=== PATIENT | male | born 1955 | race Caucasian/White ===

== ENCOUNTER 2021-03-22 10:53 | Inpatient (IN) ==
[2021-03-22] MEDS ORDERED: ASPIRIN 325 MG TABLET PO STA (12:43)
[2021-03-22 12:49] LABS: Basophils # 0.1 10*3/uL (0.0-0.2); Basophils % 0.3 % (0.0-0.8); Eosinophils # 0.4 10*3/uL (0.0-0.87); Eosinophils % 2.4 % (0.00-10.9); Hematocrit 44.9 VOL% (42.0-52.0); Hemoglobin 14.4 GM/DL (14.0-18.0); Immature Granulocytes % 0.6 %; Lymphocytes # 2.8 10*3/uL (1.4-4.0); Lymphocytes % 18.1 % (21.2-54.2); Mean Corpuscular HGB Conc 32.1 GM/DL (32-36); Mean Corpuscular Volume 96.8 FL (87-102); Mean Platelet Volume 9.3 FL (9.6-12.0); Monocytes % 9.5 % (1.7-12.7); Neutrophils % 69.1 % (38.7-73.9); Platelet Count 346 T/CUMM (130-400); Red Blood Count 4.64 MC/CUMM (3.8-5.5); White Blood Count 15.7 T/CUMM (4-12)
[2021-03-22 12:57] LABS: INR 1.1; PT Patient Result 12.6 SECS (10.5-12.0)
[2021-03-22] MEDS ORDERED: ALBUTEROL 2.5 MG/3 ML NEB RESP TX PRN (14:57)
[2021-03-22] MEDS ORDERED: MORPHINE 2 MG/1 ML SYRINGE IV PRN (14:57)
[2021-03-22] MEDS ORDERED: GLUCAGON 1 MG VIAL IM PRN (14:57)
[2021-03-22] MEDS ORDERED: ACETAMINOPHEN 325 MG TABLET PO PRN ×2 (14:57)
[2021-03-22] MEDS ORDERED: hydrALAZINE 20 MG/1 ML VIAL IV PRN (14:57)
[2021-03-22] MEDS ORDERED: ONDANSETRON 4 MG/2 ML VIAL IV PRN (14:57)
[2021-03-22] MEDS ORDERED: DEXTROSE 10% 250 ML BAG IV PRN (15:07)
[2021-03-22 15:46] LABS: Risk Ratio 2.75; Thyroid Stimulating Hormone 2.26 uIU/ml (0.358-3.74); VLDL Cholesterol 20.6 MG/DL
[2021-03-22 16:32] LABS: Albumin 2.8 G/DL (3.4-5.0); Calcium 8.5 MG/DL (8.5-10.1); Osmolality,Calculated 275.7 MOS/KG (273-304); Potassium 3.8 MMOL/L (3.5-5.1); Total Protein 7.2 G/DL (6.4-8.2)
[2021-03-22 17:05] LABS: Bacteria,Urine Many /HPF (Few); Bilirubin,Urine Negative (Negative); Blood, Urine Moderate mg/dL (Negative); Glucose,Urine (UA) Negative (Negative); Ketones,Urine Negative (Negative); Mucus,Urine Many /LPF (Occasional); Nitrite,Urine Positive (Negative); Protein,Urine 30 MG/DL; RBC,Urine 3 /HPF (0-4); Urine Appearance CLOUDY (Clear); Urine Color Amber (Yellow); Urine Specific Gravity 1.021 (1.001-1.035); Urine Urobilinogen < 2.0 EU/DL (<2.0)
[2021-03-22] MEDS: APIXABAN 5 MG TABLET PO SCH (21:49)
[2021-03-22] MEDS: OMEGA 3 ACID ETHYL ESTERS 1 GM CAPSULE PO SCH (21:49)
[2021-03-22] MEDS: FINASTERIDE 5 MG TABLET PO SCH (21:49)
[2021-03-22] MEDS: CHOLECALCIFEROL 1,000 UNIT TABLET PO SCH (21:49)
[2021-03-23 04:16] LABS: Basophils # 0.1 10*3/uL (0.0-0.2); Basophils % 0.3 % (0.0-0.8); Eosinophils # 0.4 10*3/uL (0.0-0.87); Eosinophils % 2.6 % (0.00-10.9); Hematocrit 42.2 VOL% (42.0-52.0); Hemoglobin 13.9 GM/DL (14.0-18.0); Immature Granulocytes % 0.6 %; Immature Granulocytes Absolute 0.09 #; Lymphocytes # 2.4 10*3/uL (1.4-4.0); Lymphocytes % 15.7 % (21.2-54.2); Mean Corpuscular HGB Conc 32.9 GM/DL (32-36); Mean Corpuscular Volume 94.2 FL (87-102); Mean Platelet Volume 10.4 FL (9.6-12.0); Monocytes % 9.3 % (1.7-12.7); Neutrophils % 71.5 % (38.7-73.9); Platelet Count 291 T/CUMM (130-400); Red Blood Count 4.48 MC/CUMM (3.8-5.5); White Blood Count 15.3 T/CUMM (4-12)
[2021-03-23 04:38] LABS: Calcium 8.5 MG/DL (8.5-10.1); Potassium 5.8 MMOL/L (3.5-5.1)
[2021-03-23] MEDS ORDERED: METOPROLOL TARTRATE 5 MG/5 ML VIAL IV ONE (09:05)
[2021-03-23] MEDS: APIXABAN 5 MG TABLET PO SCH ×2 (09:52→21:11)
[2021-03-23] MEDS: OMEGA 3 ACID ETHYL ESTERS 1 GM CAPSULE PO SCH ×2 (09:52→21:11)
[2021-03-23] MEDS: PANTOPRAZOLE 40 MG TABLET PO SCH (09:52)
[2021-03-23] MEDS ORDERED: METOPROLOL TARTRATE 25 MG TABLET PO SCH (10:00)
[2021-03-23] MEDS: cefTRIAXone 1,000 MG in SODIUM CHLORIDE 0.9% 100 ML IV SCH (10:06)
[2021-03-23] MEDS: PHENAZOPYRIDINE 95 MG TABLET PO SCH ×3 (12:08→21:11)
[2021-03-23] MEDS: FINASTERIDE 5 MG TABLET PO SCH (21:11)
[2021-03-23] MEDS: CHOLECALCIFEROL 1,000 UNIT TABLET PO SCH (21:11)
[2021-03-23] MEDS: SOTALOL 80 MG TABLET PO SCH (21:12)
[2021-03-24 05:24] LABS: Basophils # 0.1 10*3/uL (0.0-0.2); Basophils % 0.3 % (0.0-0.8); Eosinophils # 0.4 10*3/uL (0.0-0.87); Eosinophils % 1.5 % (0.00-10.9); Hemoglobin 13.3 GM/DL (14.0-18.0); Immature Granulocytes % 0.6 %; Immature Granulocytes Absolute 0.14 #; Lymphocytes # 3.3 10*3/uL (1.4-4.0); Mean Corpuscular HGB Conc 31.7 GM/DL (32-36); Mean Corpuscular Volume 96.6 FL (87-102); Monocytes % 9.6 % (1.7-12.7); Platelet Count 335 T/CUMM (130-400); Red Blood Count 4.35 MC/CUMM (3.8-5.5); White Blood Count 23.3 T/CUMM (4-12)
[2021-03-24 05:36] LABS: Osmolality,Calculated 272.1 MOS/KG (273-304); Potassium 4.2 MMOL/L (3.5-5.1)
[2021-03-24 05:46] LABS: Lymphocytes 13 % (20-55); Platelet Estimate Adequate; Segmented Neutrophils 78 % (50-85); Total Cells Counted 100
[2021-03-24] MEDS: cefTRIAXone 1,000 MG in SODIUM CHLORIDE 0.9% 100 ML IV SCH (11:10)
[2021-03-24] MEDS: APIXABAN 5 MG TABLET PO SCH ×2 (11:11→21:22)
[2021-03-24] MEDS: DOCUSATE SODIUM 100 MG CAPSULE PO PRN (11:11)
[2021-03-24] MEDS: SOTALOL 80 MG TABLET PO SCH ×2 (11:11→21:21)
[2021-03-24] MEDS: OMEGA 3 ACID ETHYL ESTERS 1 GM CAPSULE PO SCH ×2 (11:11→21:21)
[2021-03-24] MEDS: PANTOPRAZOLE 40 MG TABLET PO SCH (11:20)
[2021-03-24] MEDS: PHENAZOPYRIDINE 95 MG TABLET PO SCH ×3 (11:20→21:21)
[2021-03-24] MEDS: CHOLECALCIFEROL 1,000 UNIT TABLET PO SCH (21:21)
[2021-03-24] MEDS: FINASTERIDE 5 MG TABLET PO SCH (21:22)
[2021-03-25 06:32] LABS: Basophils % 0.3 % (0.0-0.8); Eosinophils # 0.5 10*3/uL (0.0-0.87); Eosinophils % 3.6 % (0.00-10.9); Hematocrit 41.4 VOL% (42.0-52.0); Hemoglobin 13.2 GM/DL (14.0-18.0); Immature Granulocytes % 0.7 %; Immature Granulocytes Absolute 0.11 #; Lymphocytes # 2.7 10*3/uL (1.4-4.0); Lymphocytes % 18.7 % (21.2-54.2); Mean Corpuscular HGB Conc 31.9 GM/DL (32-36); Mean Platelet Volume 9.6 FL (9.6-12.0); Monocytes % 9.7 % (1.7-12.7); Platelet Count 310 T/CUMM (130-400); Red Blood Count 4.27 MC/CUMM (3.8-5.5); Red Cell Distribution Width 12.9 % (9.3-17.3); White Blood Count 14.7 T/CUMM (4-12)
[2021-03-25 06:40] LABS: Calcium 9.3 MG/DL (8.5-10.1); Osmolality,Calculated 273.1 MOS/KG (273-304)
[2021-03-25] MEDS: PHENAZOPYRIDINE 95 MG TABLET PO SCH ×3 (09:21→21:14)
[2021-03-25] MEDS: PANTOPRAZOLE 40 MG TABLET PO SCH (09:22)
[2021-03-25] MEDS: OMEGA 3 ACID ETHYL ESTERS 1 GM CAPSULE PO SCH ×2 (09:22→21:15)
[2021-03-25] MEDS: APIXABAN 5 MG TABLET PO SCH ×2 (09:22→21:15)
[2021-03-25] MEDS: SOTALOL 80 MG TABLET PO SCH ×2 (09:22→21:15)
[2021-03-25] MEDS: cefTRIAXone 1,000 MG in SODIUM CHLORIDE 0.9% 100 ML IV SCH (09:23)
[2021-03-25] MEDS: CHOLECALCIFEROL 1,000 UNIT TABLET PO SCH (21:15)
[2021-03-25] MEDS: FINASTERIDE 5 MG TABLET PO SCH (21:21)
[2021-03-26 08:13] LABS: Basophils % 0.4 % (0.0-0.8); Eosinophils # 0.5 10*3/uL (0.0-0.87); Hematocrit 42.7 VOL% (42.0-52.0); Hemoglobin 13.9 GM/DL (14.0-18.0); Immature Granulocytes % 0.7 %; Immature Granulocytes Absolute 0.07 #; Lymphocytes # 2.1 10*3/uL (1.4-4.0); Mean Corpuscular HGB Conc 32.6 GM/DL (32-36); Mean Corpuscular Volume 94.9 FL (87-102); Mean Platelet Volume 8.5 FL (9.6-12.0); Monocytes % 10.8 % (1.7-12.7); Neutrophils % 61.1 % (38.7-73.9); Platelet Count 404 T/CUMM (130-400); Red Cell Distribution Width 12.7 % (9.3-17.3); White Blood Count 9.6 T/CUMM (4-12)
[2021-03-26 08:36] LABS: Calcium 8.8 MG/DL (8.5-10.1); Potassium 4.2 MMOL/L (3.5-5.1)
[2021-03-26] MEDS: PANTOPRAZOLE 40 MG TABLET PO SCH (08:51)
[2021-03-26] MEDS: SOTALOL 80 MG TABLET PO SCH ×2 (08:51→20:51)
[2021-03-26] MEDS: PHENAZOPYRIDINE 95 MG TABLET PO SCH ×3 (08:51→20:51)
[2021-03-26] MEDS: OMEGA 3 ACID ETHYL ESTERS 1 GM CAPSULE PO SCH ×2 (08:51→20:51)
[2021-03-26] MEDS: APIXABAN 5 MG TABLET PO SCH ×2 (08:51→20:51)
[2021-03-26] MEDS: cefTRIAXone 1,000 MG in SODIUM CHLORIDE 0.9% 100 ML IV SCH (08:52)
[2021-03-26] MEDS: FINASTERIDE 5 MG TABLET PO SCH (20:50)
[2021-03-26] MEDS: CHOLECALCIFEROL 1,000 UNIT TABLET PO SCH (20:51)
[2021-03-27 05:59] LABS: Basophils # 0.1 10*3/uL (0.0-0.2); Basophils % 0.8 % (0.0-0.8); Eosinophils # 0.4 10*3/uL (0.0-0.87); Eosinophils % 4.8 % (0.00-10.9); Hematocrit 42.4 VOL% (42.0-52.0); Hemoglobin 13.1 GM/DL (14.0-18.0); Immature Granulocytes % 1.4 %; Immature Granulocytes Absolute 0.12 #; Lymphocytes # 2.3 10*3/uL (1.4-4.0); Lymphocytes % 26.5 % (21.2-54.2); Mean Corpuscular HGB Conc 30.9 GM/DL (32-36); Mean Corpuscular Volume 99.3 FL (87-102); Mean Platelet Volume 10.8 FL (9.6-12.0); Monocytes % 13.4 % (1.7-12.7); Neutrophils % 53.1 % (38.7-73.9); Platelet Count 306 T/CUMM (130-400); Red Blood Count 4.27 MC/CUMM (3.8-5.5); Red Cell Distribution Width 12.7 % (9.3-17.3); White Blood Count 8.8 T/CUMM (4-12)
[2021-03-27 06:36] LABS: Osmolality,Calculated 269.1 MOS/KG (273-304); Potassium 4.3 MMOL/L (3.5-5.1)
[2021-03-27] MEDS: OMEGA 3 ACID ETHYL ESTERS 1 GM CAPSULE PO SCH ×2 (09:04→21:59)
[2021-03-27] MEDS: APIXABAN 5 MG TABLET PO SCH ×2 (09:04→22:01)
[2021-03-27] MEDS: PANTOPRAZOLE 40 MG TABLET PO SCH (09:04)
[2021-03-27] MEDS: PHENAZOPYRIDINE 95 MG TABLET PO SCH ×3 (09:04→21:59)
[2021-03-27] MEDS: SOTALOL 80 MG TABLET PO SCH ×2 (09:04→21:59)
[2021-03-27] MEDS: cefTRIAXone 1,000 MG in SODIUM CHLORIDE 0.9% 100 ML IV SCH (09:05)
[2021-03-27] MEDS: FINASTERIDE 5 MG TABLET PO SCH (21:59)
[2021-03-27] MEDS: CHOLECALCIFEROL 1,000 UNIT TABLET PO SCH (21:59)
[2021-03-28] MEDS ORDERED: SODIUM CHLORIDE 0.9% 500 ML IV SCH (06:00)
[2021-03-28 06:29] LABS: Basophils # 0.1 10*3/uL (0.0-0.2); Basophils % 0.9 % (0.0-0.8); Eosinophils # 0.4 10*3/uL (0.0-0.87); Eosinophils % 5.1 % (0.00-10.9); Hematocrit 42.5 VOL% (42.0-52.0); Hemoglobin 13.5 GM/DL (14.0-18.0); Immature Granulocytes % 0.7 %; Immature Granulocytes Absolute 0.06 #; Lymphocytes # 2.4 10*3/uL (1.4-4.0); Lymphocytes % 28.2 % (21.2-54.2); Mean Corpuscular HGB Conc 31.8 GM/DL (32-36); Mean Corpuscular Volume 95.1 FL (87-102); Mean Platelet Volume 8.8 FL (9.6-12.0); Monocytes % 14.1 % (1.7-12.7); Platelet Count 448 T/CUMM (130-400); Red Blood Count 4.47 MC/CUMM (3.8-5.5); Red Cell Distribution Width 12.8 % (9.3-17.3); White Blood Count 8.6 T/CUMM (4-12)
[2021-03-28] MEDS ORDERED: MIDAZOLAM 10 MG/2 ML VIAL ONE (06:43)
[2021-03-28] MEDS ORDERED: MEPERIDINE 25 MG/1 ML VIAL ONE (06:44)
[2021-03-28 06:45] LABS: Calcium 9.4 MG/DL (8.5-10.1); Osmolality,Calculated 276.7 MOS/KG (273-304); Potassium 4.3 MMOL/L (3.5-5.1)
[2021-03-28] MEDS ORDERED: SODIUM CHLORIDE 0.9% 1,000 ML IV SCH (06:45)
[2021-03-28] MEDS ORDERED: MIDAZOLAM 2 MG/2 ML VIAL IV ONE (07:40)
[2021-03-28] MEDS: PHENAZOPYRIDINE 95 MG TABLET PO SCH (09:02)
[2021-03-28] MEDS: OMEGA 3 ACID ETHYL ESTERS 1 GM CAPSULE PO SCH (09:03)
[2021-03-28] MEDS: PANTOPRAZOLE 40 MG TABLET PO SCH (09:03)
[2021-03-28] MEDS: APIXABAN 5 MG TABLET PO SCH (09:03)
[2021-03-28] MEDS: DOCUSATE SODIUM 100 MG CAPSULE PO PRN (09:04)
[2021-03-28] MEDS: cefTRIAXone 1,000 MG in SODIUM CHLORIDE 0.9% 100 ML IV SCH (09:07)
[2021-03-28] MEDS: SOTALOL 80 MG TABLET PO SCH (09:07)
[2021-03-28 12:32] VITALS: BP 92/59
== END 2021-03-28 12:31 | disposition home or self-care (01) | DRG 309 ==
LOC: N.ED 10:53 → N.EDINP 10:53 → SUATTDRO 14:57 → N.TELES 03-23 06:27 → SUATTDRO 03-23 10:07
PROVIDERS: ADMIT Internal Medicine; ATTEND Emergency Medicine

== ENCOUNTER 2021-12-14 11:51 | Inpatient (IN) ==
[2021-12-14 12:56] LABS: Bilirubin,Urine Moderate mg/dL (Negative); Blood, Urine Large mg/dL (Negative); Glucose,Urine (UA) Negative (Negative); Ketones,Urine Trace mg/dL (Negative); Nitrite,Urine Positive (Negative); Protein,Urine >=300 mg/dL (Negative); Urine Appearance Cloudy (Clear); Urine Color Red (Yellow); Urine Specific Gravity >= 1.030 (1.001-1.035); Urine pH 5.5 (4.5-8.0)
[2021-12-14 13:00] LABS: Hyaline Casts,Urine 254 /LPF (0-3); Mucus,Urine Many /LPF (Occasional); RBC,Urine 3360 /HPF (0-4)
[2021-12-14] MEDS ORDERED: SODIUM CHLORIDE 0.9% 1,000 ML IV STA ×2 (13:25→17:22)
[2021-12-14 14:03] LABS: Basophils # 0.1 10*3/uL (0.0-0.2); Basophils % 0.4 % (0.0-0.8); Eosinophils # 0.1 10*3/uL (0.0-0.87); Eosinophils % 0.9 % (0.00-10.9); Hematocrit 44.4 VOL% (42.0-52.0); Hemoglobin 14.6 GM/DL (14.0-18.0); Immature Granulocytes % 0.5 %; Immature Granulocytes Absolute 0.07 #; Lymphocytes % 12.8 % (21.2-54.2); Mean Corpuscular HGB Conc 32.9 GM/DL (32-36); Mean Corpuscular Volume 95.5 FL (87-102); Mean Platelet Volume 9.1 FL (9.6-12.0); Monocytes # 1.9 10*3/uL (0.11-0.8); Monocytes % 12.8 % (1.7-12.7); Neutrophils % 72.6 % (38.7-73.9); Platelet Count 302 T/CUMM (130-400); Red Blood Count 4.65 MC/CUMM (3.8-5.5); Red Cell Distribution Width 13.1 % (9.3-17.3); White Blood Count 15.2 T/CUMM (4-12)
[2021-12-14 14:20] LABS: Albumin 3.7 G/DL (3.4-5.0); Bilirubin,Total 0.6 MG/DL (0.20-1.00); Calcium 10.3 MG/DL (8.5-10.1); Osmolality,Calculated 278.2 MOS/KG (273-304); Potassium 4.5 MMOL/L (3.5-5.1); Total Protein 8.1 G/DL (6.4-8.2)
[2021-12-14] MEDS ORDERED: ONDANSETRON 4 MG/2 ML VIAL IV PRN (14:46)
[2021-12-14] MEDS ORDERED: MORPHINE 2 MG/1 ML SYRINGE IV PRN (14:46)
[2021-12-14] MEDS ORDERED: SODIUM CHLORIDE 0.9% 1,000 ML IV SCH (15:00)
[2021-12-14 17:40] LABS: CKMB % 9.56 %
[2021-12-14] MEDS: ASCORBIC ACID 500 MG TABLET PO SCH (17:40)
[2021-12-14] MEDS: cefTRIAXone 1,000 MG in SODIUM CHLORIDE 0.9% 100 ML IV SCH (18:15)
[2021-12-14] MEDS ORDERED: ALUM/MAG/SIMETH/LIDO VISC 1:1 30 ML BOTTLE PO ONE (19:44)
[2021-12-14] MEDS: FENOFIBRATE 145 MG TABLET PO SCH (20:02)
[2021-12-14] MEDS: CHOLECALCIFEROL 1,000 UNIT TABLET PO SCH (20:02)
[2021-12-14] MEDS: FINASTERIDE 5 MG TABLET PO SCH (20:53)
[2021-12-14] MEDS: OMEGA 3 ACID ETHYL ESTERS 1 GM CAPSULE PO SCH (20:53)
[2021-12-14] MEDS: AMIODARONE 200 MG TABLET PO SCH (20:53)
[2021-12-14] MEDS ORDERED: APIXABAN 5 MG TABLET PO SCH (21:00)
[2021-12-14] MEDS: SODIUM CHLORIDE 0.9% 1,000 ML IV SCH (21:42)
[2021-12-15] MEDS: ASCORBIC ACID 500 MG TABLET PO SCH ×2 (03:04→17:35)
[2021-12-15 06:01] LABS: Basophils # 0.1 10*3/uL (0.0-0.2); Basophils % 0.4 % (0.0-0.8); Eosinophils # 0.4 10*3/uL (0.0-0.87); Eosinophils % 2.9 % (0.00-10.9); Hematocrit 35.7 VOL% (42.0-52.0); Hemoglobin 11.9 GM/DL (14.0-18.0); Immature Granulocytes % 0.4 %; Immature Granulocytes Absolute 0.06 #; Lymphocytes # 2.3 10*3/uL (1.4-4.0); Lymphocytes % 16.6 % (21.2-54.2); Mean Corpuscular HGB Conc 33.3 GM/DL (32-36); Mean Corpuscular Volume 96.5 FL (87-102); Mean Platelet Volume 9.3 FL (9.6-12.0); Monocytes # 1.5 10*3/uL (0.11-0.8); Monocytes % 11.3 % (1.7-12.7); Neutrophils % 68.4 % (38.7-73.9); Platelet Count 300 T/CUMM (130-400); Red Cell Distribution Width 13.2 % (9.3-17.3); White Blood Count 13.7 T/CUMM (4-12)
[2021-12-15 06:32] LABS: Albumin 2.8 G/DL (3.4-5.0); Bilirubin,Total 0.7 MG/DL (0.20-1.00); Calcium 9.5 MG/DL (8.5-10.1); Osmolality,Calculated 277.1 MOS/KG (273-304); Potassium 4.7 MMOL/L (3.5-5.1); Risk Ratio 3.06; Thyroid Stimulating Hormone 0.749 uIU/ml (0.358-3.74); Total Protein 6.7 G/DL (6.4-8.2); VLDL Cholesterol 13.4 MG/DL
[2021-12-15 07:26] LABS: CKMB % 6.16 %
[2021-12-15 07:31] LABS: High Sensitive Troponin I* 12059.8 ng/L (0-78)
[2021-12-15] MEDS: SODIUM CHLORIDE 0.9% 1,000 ML IV SCH ×2 (07:57→20:05)
[2021-12-15] MEDS: AMIODARONE 200 MG TABLET PO SCH ×2 (08:20→20:46)
[2021-12-15] MEDS: OMEGA 3 ACID ETHYL ESTERS 1 GM CAPSULE PO SCH ×2 (08:20→20:45)
[2021-12-15] MEDS ORDERED: FLUCONAZOLE 100 MG TABLET PO ONE (13:29)
[2021-12-15] MEDS: cefTRIAXone 1,000 MG in SODIUM CHLORIDE 0.9% 100 ML IV SCH (17:34)
[2021-12-15] MEDS: CHOLECALCIFEROL 1,000 UNIT TABLET PO SCH (18:36)
[2021-12-15] MEDS: FENOFIBRATE 145 MG TABLET PO SCH (18:36)
[2021-12-15] MEDS: FINASTERIDE 5 MG TABLET PO SCH (20:46)
[2021-12-16] MEDS: ASCORBIC ACID 500 MG TABLET PO SCH ×3 (03:08→15:49)
[2021-12-16] MEDS: SODIUM CHLORIDE 0.9% 1,000 ML IV SCH ×2 (04:49→14:10)
[2021-12-16 05:44] LABS: Basophils % 0.3 % (0.0-0.8); Eosinophils # 0.8 10*3/uL (0.0-0.87); Eosinophils % 6.5 % (0.00-10.9); Hematocrit 35.5 VOL% (42.0-52.0); Hemoglobin 11.6 GM/DL (14.0-18.0); Immature Granulocytes % 0.7 %; Immature Granulocytes Absolute 0.08 #; Lymphocytes # 2.4 10*3/uL (1.4-4.0); Lymphocytes % 19.7 % (21.2-54.2); Mean Corpuscular HGB Conc 32.7 GM/DL (32-36); Mean Platelet Volume 9.2 FL (9.6-12.0); Monocytes # 1.1 10*3/uL (0.11-0.8); Monocytes % 8.8 % (1.7-12.7); Platelet Count 326 T/CUMM (130-400); Red Blood Count 3.66 MC/CUMM (3.8-5.5); Red Cell Distribution Width 13.3 % (9.3-17.3); White Blood Count 12.1 T/CUMM (4-12)
[2021-12-16 06:06] LABS: Albumin 2.6 G/DL (3.4-5.0); Bilirubin,Total 0.5 MG/DL (0.20-1.00); Calcium 9.2 MG/DL (8.5-10.1); Osmolality,Calculated 274.2 MOS/KG (273-304); Potassium 4.3 MMOL/L (3.5-5.1); Total Protein 6.8 G/DL (6.4-8.2)
[2021-12-16 06:44] LABS: Hepatitis B Core IgM Quant 0.19 Index; Hepatitis B Surface Ag Quant < 0.10 Index; Hepatitis B Surface Ag Result Non-Reactive (NonReactive); Hepatitis C Virus Ab Quant 0.06 Index; Hepatitis C Virus Ab Result Non-Reactive (NonReactive)
[2021-12-16] MEDS: PANTOPRAZOLE 40 MG TABLET PO SCH (08:31)
[2021-12-16] MEDS: OMEGA 3 ACID ETHYL ESTERS 1 GM CAPSULE PO SCH ×2 (08:31→23:27)
[2021-12-16] MEDS: AMIODARONE 200 MG TABLET PO SCH ×2 (08:31→23:26)
[2021-12-16] MEDS: MEROPENEM 500 MG in SODIUM CHLORIDE 0.9% 100 ML IV SCH ×3 (09:22→23:27)
[2021-12-16] MEDS ORDERED: ENOXAPARIN 100 MG/ML SYRINGE SUBCUT SCH (11:30)
[2021-12-16] MEDS: ASPIRIN EC 81 MG TABLET PO SCH (11:37)
[2021-12-16] MEDS: FENOFIBRATE 145 MG TABLET PO SCH (18:47)
[2021-12-16] MEDS: CHOLECALCIFEROL 1,000 UNIT TABLET PO SCH (18:47)
[2021-12-16] MEDS: FINASTERIDE 5 MG TABLET PO SCH (23:28)
[2021-12-17] MEDS: SODIUM CHLORIDE 0.9% 1,000 ML IV SCH ×3 (00:15→20:52)
[2021-12-17] MEDS: MEROPENEM 500 MG in SODIUM CHLORIDE 0.9% 100 ML IV SCH (03:58)
[2021-12-17 05:35] LABS: Basophils # 0.1 10*3/uL (0.0-0.2); Basophils % 0.6 % (0.0-0.8); Eosinophils # 0.9 10*3/uL (0.0-0.87); Eosinophils % 7.9 % (0.00-10.9); Hematocrit 34.6 VOL% (42.0-52.0); Hemoglobin 11.1 GM/DL (14.0-18.0); Immature Granulocytes % 0.8 %; Immature Granulocytes Absolute 0.09 #; Lymphocytes # 2.4 10*3/uL (1.4-4.0); Mean Corpuscular HGB Conc 32.1 GM/DL (32-36); Mean Corpuscular Volume 97.2 FL (87-102); Mean Platelet Volume 9.3 FL (9.6-12.0); Monocytes # 0.9 10*3/uL (0.11-0.8); Monocytes % 8.6 % (1.7-12.7); Neutrophils % 60.1 % (38.7-73.9); Platelet Count 384 T/CUMM (130-400); Red Blood Count 3.56 MC/CUMM (3.8-5.5); Red Cell Distribution Width 13.4 % (9.3-17.3); White Blood Count 10.9 T/CUMM (4-12)
[2021-12-17 05:55] LABS: Calcium 8.5 MG/DL (8.5-10.1); Osmolality,Calculated 278.7 MOS/KG (273-304)
[2021-12-17] MEDS: AMIODARONE 200 MG TABLET PO SCH ×2 (09:10→20:52)
[2021-12-17] MEDS: ASPIRIN EC 81 MG TABLET PO SCH (09:10)
[2021-12-17] MEDS: OMEGA 3 ACID ETHYL ESTERS 1 GM CAPSULE PO SCH ×2 (09:10→20:52)
[2021-12-17] MEDS: PANTOPRAZOLE 40 MG TABLET PO SCH (09:10)
[2021-12-17] MEDS: ASCORBIC ACID 500 MG TABLET PO SCH (15:40)
[2021-12-17] MEDS: CHOLECALCIFEROL 1,000 UNIT TABLET PO SCH (18:05)
[2021-12-17] MEDS: FENOFIBRATE 145 MG TABLET PO SCH (18:05)
[2021-12-17] MEDS: FINASTERIDE 5 MG TABLET PO SCH (20:52)
[2021-12-18 05:09] LABS: Basophils # 0.1 10*3/uL (0.0-0.2); Basophils % 0.7 % (0.0-0.8); Eosinophils # 0.7 10*3/uL (0.0-0.87); Hematocrit 33.2 VOL% (42.0-52.0); Hemoglobin 10.8 GM/DL (14.0-18.0); Immature Granulocytes % 1.3 %; Immature Granulocytes Absolute 0.11 #; Lymphocytes # 2.1 10*3/uL (1.4-4.0); Lymphocytes % 24.1 % (21.2-54.2); Mean Corpuscular HGB Conc 32.5 GM/DL (32-36); Mean Corpuscular Volume 96.5 FL (87-102); Mean Platelet Volume 9.2 FL (9.6-12.0); Monocytes # 0.9 10*3/uL (0.11-0.8); Monocytes % 9.8 % (1.7-12.7); Neutrophils % 56.1 % (38.7-73.9); Platelet Count 442 T/CUMM (130-400); Red Blood Count 3.44 MC/CUMM (3.8-5.5); Red Cell Distribution Width 13.6 % (9.3-17.3); White Blood Count 8.8 T/CUMM (4-12)
[2021-12-18 05:34] LABS: Calcium 8.3 MG/DL (8.5-10.1); Potassium 3.8 MMOL/L (3.5-5.1)
[2021-12-18] MEDS: SODIUM CHLORIDE 0.9% 1,000 ML IV SCH ×2 (06:36→18:34)
[2021-12-18] MEDS: ASCORBIC ACID 500 MG TABLET PO SCH ×2 (09:42→20:25)
[2021-12-18] MEDS: ASPIRIN EC 81 MG TABLET PO SCH (09:42)
[2021-12-18] MEDS: AMIODARONE 200 MG TABLET PO SCH ×2 (09:42→20:25)
[2021-12-18] MEDS: PANTOPRAZOLE 40 MG TABLET PO SCH (09:43)
[2021-12-18] MEDS: OMEGA 3 ACID ETHYL ESTERS 1 GM CAPSULE PO SCH ×2 (09:43→20:25)
[2021-12-18] MEDS: ERYTHROMYCIN 0.5% OPHT OINT 3.5 GM TUBE RIGHT EYE SCH ×3 (14:15→20:25)
[2021-12-18] MEDS: PHENAZOPYRIDINE 95 MG TABLET PO SCH (17:23)
[2021-12-18] MEDS: FENOFIBRATE 145 MG TABLET PO SCH (18:34)
[2021-12-18] MEDS: CHOLECALCIFEROL 1,000 UNIT TABLET PO SCH (18:34)
[2021-12-18] MEDS: FINASTERIDE 5 MG TABLET PO SCH (20:25)
[2021-12-19] MEDS: SODIUM CHLORIDE 0.9% 1,000 ML IV SCH ×2 (02:30→16:50)
[2021-12-19 06:00] LABS: Basophils # 0.1 10*3/uL (0.0-0.2); Eosinophils # 0.6 10*3/uL (0.0-0.87); Eosinophils % 6.8 % (0.00-10.9); Hematocrit 35.4 VOL% (42.0-52.0); Hemoglobin 11.4 GM/DL (14.0-18.0); Immature Granulocytes % 2.4 %; Lymphocytes # 2.4 10*3/uL (1.4-4.0); Lymphocytes % 29.1 % (21.2-54.2); Mean Corpuscular HGB Conc 32.2 GM/DL (32-36); Mean Corpuscular Volume 98.1 FL (87-102); Monocytes # 0.8 10*3/uL (0.11-0.8); Monocytes % 9.5 % (1.7-12.7); Neutrophils % 51.2 % (38.7-73.9); Platelet Count 491 T/CUMM (130-400); Red Blood Count 3.61 MC/CUMM (3.8-5.5); Red Cell Distribution Width 13.6 % (9.3-17.3); White Blood Count 8.4 T/CUMM (4-12)
[2021-12-19 06:23] LABS: Potassium 4.2 MMOL/L (3.5-5.1)
[2021-12-19] MEDS: ASCORBIC ACID 500 MG TABLET PO SCH ×2 (08:59→21:04)
[2021-12-19] MEDS: PANTOPRAZOLE 40 MG TABLET PO SCH (08:59)
[2021-12-19] MEDS: ASPIRIN EC 81 MG TABLET PO SCH (08:59)
[2021-12-19] MEDS: PHENAZOPYRIDINE 95 MG TABLET PO SCH ×3 (08:59→16:22)
[2021-12-19] MEDS: OMEGA 3 ACID ETHYL ESTERS 1 GM CAPSULE PO SCH ×2 (09:00→21:04)
[2021-12-19] MEDS: AMIODARONE 200 MG TABLET PO SCH ×2 (09:00→21:04)
[2021-12-19] MEDS: ERYTHROMYCIN 0.5% OPHT OINT 3.5 GM TUBE RIGHT EYE SCH ×4 (10:48→21:05)
[2021-12-19] MEDS: FENOFIBRATE 145 MG TABLET PO SCH (21:04)
[2021-12-19] MEDS: CHOLECALCIFEROL 1,000 UNIT TABLET PO SCH (21:04)
[2021-12-19] MEDS: FINASTERIDE 5 MG TABLET PO SCH (21:05)
[2021-12-20] MEDS: SODIUM CHLORIDE 0.9% 1,000 ML IV SCH ×3 (01:42→17:42)
[2021-12-20] MEDS ORDERED: cefTRIAXone 1,000 MG in SODIUM CHLORIDE 0.9% 100 ML IV ONE (06:32)
[2021-12-20] MEDS: PHENAZOPYRIDINE 95 MG TABLET PO SCH ×2 (08:00→13:40)
[2021-12-20] MEDS: ERYTHROMYCIN 0.5% OPHT OINT 3.5 GM TUBE RIGHT EYE SCH ×4 (08:30→20:36)
[2021-12-20] MEDS ORDERED: fentaNYL 100 MCG/2 ML VIAL ONE (08:49)
[2021-12-20] MEDS ORDERED: LIDOCAINE 2% 5 ML VIAL ONE (08:49)
[2021-12-20] MEDS ORDERED: propofoL 200 MG/20 ML VIAL IV ONE (08:49)
[2021-12-20] MEDS ORDERED: MIDAZOLAM 2 MG/2 ML VIAL ONE (08:55)
[2021-12-20] MEDS ORDERED: ONDANSETRON 4 MG/2 ML VIAL ONE (08:56)
[2021-12-20] MEDS ORDERED: ePHEDrine 50 MG/ML VIAL ONE (09:35)
[2021-12-20] MEDS ORDERED: SEVOFLURANE 1 UNIT/15 MINUTE INH ONE (10:12)
[2021-12-20] MEDS ORDERED: PHENYLEPHRINE 1 MG/10 ML SYRINGE IV ONE (10:12)
[2021-12-20] MEDS: OMEGA 3 ACID ETHYL ESTERS 1 GM CAPSULE PO SCH ×2 (13:40→20:36)
[2021-12-20] MEDS: AMIODARONE 200 MG TABLET PO SCH ×2 (13:40→20:36)
[2021-12-20] MEDS: PANTOPRAZOLE 40 MG TABLET PO SCH (13:40)
[2021-12-20] MEDS: ASPIRIN EC 81 MG TABLET PO SCH (13:40)
[2021-12-20] MEDS: ASCORBIC ACID 500 MG TABLET PO SCH ×2 (13:40→20:36)
[2021-12-20] MEDS: CHOLECALCIFEROL 1,000 UNIT TABLET PO SCH (20:36)
[2021-12-20] MEDS: FINASTERIDE 5 MG TABLET PO SCH (20:36)
[2021-12-20] MEDS: FENOFIBRATE 145 MG TABLET PO SCH (20:36)
[2021-12-21] MEDS: SODIUM CHLORIDE 0.9% 1,000 ML IV SCH (03:15)
[2021-12-21] MEDS ORDERED: APIXABAN 5 MG TABLET PO SCH (09:00)
[2021-12-21] MEDS: ASPIRIN EC 81 MG TABLET PO SCH (09:35)
[2021-12-21] MEDS: AMIODARONE 200 MG TABLET PO SCH (09:35)
[2021-12-21] MEDS: ASCORBIC ACID 500 MG TABLET PO SCH (09:35)
[2021-12-21] MEDS: PANTOPRAZOLE 40 MG TABLET PO SCH (09:35)
[2021-12-21] MEDS: OMEGA 3 ACID ETHYL ESTERS 1 GM CAPSULE PO SCH (09:35)
[2021-12-21] MEDS: ERYTHROMYCIN 0.5% OPHT OINT 3.5 GM TUBE RIGHT EYE SCH ×3 (09:36→18:19)
[2021-12-21 16:02] VITALS: BP 109/75
[2021-12-28 09:21] LABS: Stone Analysis Interpretation 100% Uric acid
== END 2021-12-21 17:10 | disposition home or self-care (01) | DRG 683 ==
LOC: N.ED 11:51 → SUATTDRO 14:46 → N.EDINP 14:46 → N.TELES 18:56
PROVIDERS: ADMIT Internal Medicine; ATTEND Internal Medicine